=== PATIENT | female | born 1985 | race Caucasian/White ===

== ENCOUNTER 2018-07-17 19:18 | Inpatient (IN) | payer OTHER ==
[2018-07-17 20:21] LABS: ADD UMIC YES; UR ASCORBIC ACID NEGATIVE (NEGATIVE); UR BACTERIA FEW /HPF (NONE SEEN); UR BILIRUBIN (Dip) NEGATIVE (NEGATIVE); UR BLOOD (Dip) 2+ mg/dL (NEGATIVE); UR CLARITY SLIGHTLY CLOUDY (CLEAR); UR COLOR YELLOW (YELLOW); UR GLUCOSE (Dip) 1+ mg/dL (NEGATIVE); UR KETONES (Dip) NEGATIVE (NEGATIVE); UR LEUKOCYTE ESTERASE (Dip) NEGATIVE Leu/ul (NEGATIVE); UR NITRITE (Dip) NEGATIVE (NEGATIVE); UR RBC 3 /HPF (0-5); UR SPECIFIC GRAVITY (Dip) 1.011 (1.003-1.030); UR SQUAMOUS EPITHELIAL CELL FEW /HPF (FEW); UR TOTAL PROTEIN (Dip) NEGATIVE (NEGATIVE); UR UROBILINOGEN (Dip) NEGATIVE (NEGATIVE); UR WBC 1 /HPF (0-5)
[2018-07-17] MEDS ORDERED: AL HYDROX/MG HYDROX/SIMETH 30 ML CUP PO (21:00)
[2018-07-17] MEDS ORDERED: ACETAMINOPHEN 325 MG TAB PO (21:00)
[2018-07-17 21:05] LABS: ADD MAN DIFF? NO; BASOPHILS % 0.3 % (0.0-2.0); EOSINOPHILS # 0.1 10^3/ul (0.0-0.5); EOSINOPHILS % 0.8 % (0.0-7.0); HEMATOCRIT 35.4 % (37.0-47.0); HEMOGLOBIN 11.4 g/dl (12.0-16.0); LYMPHOCYTES # 1.7 10^3/ul (0.8-2.9); LYMPHOCYTES % 18.6 % (15.0-51.0); MEAN CORPUSCULAR HEMOGLOBIN 27.9 pg (29.0-33.0); MEAN CORPUSCULAR HGB CONC 32.2 g/dl (32.0-37.0); MEAN CORPUSCULAR VOLUME 86.6 fl (82.0-101.0); MEAN PLATELET VOLUME 11.8 fl (7.4-10.4); MONOCYTE # 0.7 10^3/ul (0.3-0.9); MONOCYTES % 7.7 % (0.0-11.0); NEUTROPHIL # 6.4 10^3/ul (1.6-7.5); NEUTROPHILS % 72.1 % (39.0-77.0); PLATELET COUNT 216 10^3/UL (140-415); RED BLOOD COUNT 4.09 10^6/ul (4.20-5.40); RED CELL DISTRIBUTION WIDTH 14.9 % (11.5-14.5)
[2018-07-17 21:05] LABS: WHITE BLOOD COUNT 8.9 10^3/ul (4.8-10.8)
[2018-07-17 21:23] LABS: HEMOGLOBIN A1C 5.9 % (0-5.9)
[2018-07-17 21:24] LABS: ALANINE AMINOTRANSFERASE 14 IU/L (13-69); ALBUMIN 3.5 g/dl (3.3-4.9); ALBUMIN/GLOBULIN RATIO 1.16; ALKALINE PHOSPHATASE 76 IU/L (42-121); ANION GAP 6 (5-13); ASPARTATE AMINO TRANSFERASE 12 IU/L (15-46); BILIRUBIN,INDIRECT 0.3 mg/dl (0-1.1); BILIRUBIN,TOTAL 0.3 mg/dl (0.2-1.3); BLOOD UREA NITROGEN 9 mg/dl (7-20); CALCIUM 9.3 mg/dl (8.4-10.2); CARBON DIOXIDE 26 mmol/L (21-31); CHLORIDE 106 mmol/L (97-110); CREATININE 0.52 mg/dl (0.44-1.00); Estimated GFR > 60 mL/min (>60); GLUCOSE 116 mg/dl (70-220); SODIUM 138 mmol/L (135-144); TOTAL PROTEIN 6.5 g/dl (6.1-8.1); URIC ACID 3.5 mg/dl (3.1-7.9)
[2018-07-17] MEDS ORDERED: GLUCAGON 1 MG INJ IM (22:30)
[2018-07-17] MEDS ORDERED: DEXTROSE 50% 50 ML SYRINGE IV ×2 (22:30)
[2018-07-17] MEDS ORDERED: GLUCOSE GEL 15 GRAM TUBE PO ×2 (22:30)
[2018-07-17] MEDS ORDERED: GLUCOSE GEL 15 GRAM TUBE BUCCAL (22:30)
[2018-07-18] MEDS: INSULIN ASPART [NOVOLOG] 3 ML PEN SC ×4 (09:00→21:32)
[2018-07-18] MEDS: PRENATAL VITAMIN PO (09:21)
[2018-07-18] MEDS: FERROUS SULFATE (EC) 325 MG TAB PO (09:21)
[2018-07-18] MEDS: metFORMIN 500 MG TAB PO (20:09)
[2018-07-18 21:11] LABS: COLLECTION PERIOD 24 hrs
[2018-07-18 21:38] LABS: COLLECTION PERIOD 24 hrs; SCRET 0.52 mg/dl (0.44-1.00); VOLUME 2050 ml/24hrs
[2018-07-18 21:39] LABS: 24HR URINE TOTAL PROTEIN 225.5 mg/24hrs (42.0-225.0); CREATININE CLEARANCE 139.8 mls/min (84.0-162.0); CREATININE,URINE RANDOM 51.05 mg/dl (20-320); VOLUME 2050 mls
[2018-07-19] MEDS: INSULIN ASPART [NOVOLOG] 3 ML PEN SC (07:35)
[2018-07-19] MEDS: FERROUS SULFATE (EC) 325 MG TAB PO (09:25)
[2018-07-19] MEDS: PRENATAL VITAMIN PO (09:26)
== END 2018-07-19 16:22 | disposition home or self-care (01) | DRG 833 ==
LOC: OBT 19:18 → L-D 19:18 → OBT 20:26 → L-D 20:26
DX: O24.419 Gestational diabetes mellitus in pregnancy, unspecified control (principal); Z3A.31 31 weeks gestation of pregnancy
CPT/HCPCS: 76815; 76818; 80053; 81001; 82575; 82962; 83036; 84156; 84560; 85025; 86850; 86900; 86901; 93005

== ENCOUNTER 2018-09-02 11:47 | Outpatient (CLI) | payer OTHER | END 2018-09-02 15:22 | disposition home or self-care (01) | LOC: OBT 11:47 → L-D 11:48 → OBT 15:22 | DX: O62.9 Abnormality of forces of labor, unspecified (principal); Z3A.37 37 weeks gestation of pregnancy | CPT/HCPCS: 82962 ==

== ENCOUNTER 2018-09-13 08:08 | Inpatient (IN) | payer OTHER ==
[2018-09-13] MEDS ORDERED: BUTORPHANOL 2 MG INJ IV (08:30)
[2018-09-13] MEDS ORDERED: OXYTOCIN 30 UNITS/LR 500 ML IV (08:30)
[2018-09-13] MEDS ORDERED: IBUPROFEN 600 MG TAB PO (08:30)
[2018-09-13] MEDS ORDERED: LIDOCAINE 1% (MPF) 30 ML INJ INJ (08:30)
[2018-09-13] MEDS ORDERED: CARBOPROST 250 MCG INJ IM (08:30)
[2018-09-13] MEDS ORDERED: AMPICILLIN 2 GM/NS (PMX) 100 ML IV (08:30)
[2018-09-13] MEDS ORDERED: METHYLERGONOVINE 0.2 MG INJ IM (08:30)
[2018-09-13] MEDS: LACTATED RINGER'S 1,000 ML IV ×2 (09:30→19:47)
[2018-09-13 10:10] LABS: ADD MAN DIFF? NO
[2018-09-13 10:25] LABS: BASOPHILS % 0.3 % (0.0-2.0); EOSINOPHILS # 0.1 10^3/ul (0.0-0.5); EOSINOPHILS % 0.9 % (0.0-7.0); HEMATOCRIT 34.4 % (37.0-47.0); HEMOGLOBIN 11.3 g/dl (12.0-16.0); LYMPHOCYTES # 1.6 10^3/ul (0.8-2.9); LYMPHOCYTES % 23.6 % (15.0-51.0); MEAN CORPUSCULAR HEMOGLOBIN 27.4 pg (29.0-33.0); MEAN CORPUSCULAR HGB CONC 32.8 g/dl (32.0-37.0); MEAN CORPUSCULAR VOLUME 83.3 fl (82.0-101.0); MEAN PLATELET VOLUME 12.4 fl (7.4-10.4); MONOCYTE # 0.5 10^3/ul (0.3-0.9); MONOCYTES % 7.1 % (0.0-11.0); NEUTROPHIL # 4.7 10^3/ul (1.6-7.5); NEUTROPHILS % 67.8 % (39.0-77.0); PLATELET COUNT 192 10^3/UL (140-415); RED BLOOD COUNT 4.13 10^6/ul (4.20-5.40); RED CELL DISTRIBUTION WIDTH 15.2 % (11.5-14.5)
[2018-09-13] MEDS: MISOPROSTOL 50 MCG CAPSULE PO (10:32)
[2018-09-13 10:33] LABS: GLUCOSE 111 mg/dl (70-220)
[2018-09-13 11:05] LABS: HEPATITIS B SURFACE ANTIGEN NEGATIVE (NEGATIVE); INR 0.99; PROTIME 13.2 Sec (11.9-14.9)
[2018-09-13] MEDS ORDERED: AMPICILLIN 1 GM/NS (PMX) 50 ML IV (12:30)
[2018-09-13] MEDS: OXYTOCIN 30 UNITS/LR 500 ML IV (14:35)
[2018-09-13 18:37] LABS: ADD UMIC YES; UR ASCORBIC ACID NEGATIVE (NEGATIVE); UR BACTERIA FEW /HPF (NONE SEEN); UR BILIRUBIN (Dip) NEGATIVE (NEGATIVE); UR BLOOD (Dip) 2+ mg/dL (NEGATIVE); UR CLARITY CLEAR (CLEAR); UR COLOR YELLOW (YELLOW); UR GLUCOSE (Dip) NEGATIVE (NEGATIVE); UR KETONES (Dip) TRACE mg/dL (NEGATIVE); UR LEUKOCYTE ESTERASE (Dip) NEGATIVE Leu/ul (NEGATIVE); UR MUCUS FEW /HPF (NONE SEEN); UR NITRITE (Dip) NEGATIVE (NEGATIVE); UR RBC 2 /HPF (0-5); UR SPECIFIC GRAVITY (Dip) 1.015 (1.003-1.030); UR TOTAL PROTEIN (Dip) NEGATIVE (NEGATIVE); UR UROBILINOGEN (Dip) NEGATIVE (NEGATIVE); UR WBC 1 /HPF (0-5)
[2018-09-13 19:15] LABS: ADD MAN DIFF? NO
[2018-09-13 19:17] LABS: WHITE BLOOD COUNT 7.7 10^3/ul (4.8-10.8)
[2018-09-13 19:17] LABS: BASOPHILS % 0.3 % (0.0-2.0); EOSINOPHILS % 0.5 % (0.0-7.0); HEMATOCRIT 34.4 % (37.0-47.0); HEMOGLOBIN 11.1 g/dl (12.0-16.0); LYMPHOCYTES # 1.7 10^3/ul (0.8-2.9); MEAN CORPUSCULAR HEMOGLOBIN 26.9 pg (29.0-33.0); MEAN CORPUSCULAR HGB CONC 32.3 g/dl (32.0-37.0); MEAN CORPUSCULAR VOLUME 83.3 fl (82.0-101.0); MEAN PLATELET VOLUME 12.2 fl (7.4-10.4); MONOCYTE # 0.5 10^3/ul (0.3-0.9); MONOCYTES % 6.7 % (0.0-11.0); NEUTROPHIL # 5.4 10^3/ul (1.6-7.5); NEUTROPHILS % 70.2 % (39.0-77.0); PLATELET COUNT 191 10^3/UL (140-415); RED BLOOD COUNT 4.13 10^6/ul (4.20-5.40); RED CELL DISTRIBUTION WIDTH 15.3 % (11.5-14.5)
[2018-09-13] MEDS: MINERAL OIL LIGHT 10 ML VIAL TOP (19:30)
[2018-09-13 19:35] LABS: ALANINE AMINOTRANSFERASE 18 IU/L (13-69); ALBUMIN 3.3 g/dl (3.3-4.9); ALKALINE PHOSPHATASE 105 IU/L (42-121); ANION GAP 10 (5-13); ASPARTATE AMINO TRANSFERASE 17 IU/L (15-46); BILIRUBIN,INDIRECT 0.3 mg/dl (0-1.1); BILIRUBIN,TOTAL 0.3 mg/dl (0.2-1.3); BLOOD UREA NITROGEN 9 mg/dl (7-20); CARBON DIOXIDE 21 mmol/L (21-31); CHLORIDE 106 mmol/L (97-110); CREATININE 0.52 mg/dl (0.44-1.00); Estimated GFR > 60 mL/min (>60); GLUCOSE 83 mg/dl (70-220); POTASSIUM 4.2 mmol/L (3.5-5.1); SODIUM 137 mmol/L (135-144); TOTAL PROTEIN 6.6 g/dl (6.1-8.1); URIC ACID 4.9 mg/dl (3.1-7.9)
[2018-09-13] MEDS ORDERED: LACTATED RINGER'S 1,000 ML IV (19:56)
[2018-09-13] MEDS ORDERED: MAGNESIUM SULFATE 4 GM/100 ML 100 ML IV (20:00)
[2018-09-13] MEDS ORDERED: FENTAnyl 2MCG/ML-ROPIV 0.2% 100 ML (20:29)
[2018-09-13] MEDS ORDERED: MAGNESIUM SULFATE 20 GM/500 ML 500 ML IV (20:30)
[2018-09-13] MEDS ORDERED: NALOXONE (0.4 MG/ML) INJ IV (21:00)
[2018-09-13 22:33] LABS: RAPID PLASMA REAGIN NONREACTIVE (NR)
[2018-09-13] MEDS: FENTAnyl 2MCG/ML-ROPIV 0.2% 100 ML BAG EPI (22:48)
[2018-09-13] MEDS: DEXTROSE 5%-LR 1,000 ML IV (23:35)
[2018-09-14] MEDS: MISOPROSTOL 200 MCG TAB PR (01:19)
[2018-09-14] MEDS: OXYTOCIN 30 UNITS/LR 500 ML IV ×3 (01:20→09:06)
[2018-09-14] MEDS: ONDANSETRON 4 MG INJ IV (01:42)
[2018-09-14] MEDS: LACTATED RINGER'S 1,000 ML IV* (02:39)
[2018-09-14] MEDS ORDERED: MISOPROSTOL 200 MCG TAB PR (03:00)
[2018-09-14] MEDS ORDERED: DIBUCAINE 1% 30 GM OINT TOP (03:00)
[2018-09-14] MEDS ORDERED: CARBOPROST 250 MCG INJ IM (03:00)
[2018-09-14] MEDS ORDERED: ACETAMINOPHEN 325 MG TAB PO (03:00)
[2018-09-14] MEDS: IBUPROFEN 600 MG TAB PO ×4 (05:36→23:30)
[2018-09-14] MEDS: BENZOCAINE 20% 56 ML SPRAY TOP (09:03)
[2018-09-14] MEDS: SENNA/DOCUSATE NA (8.6MG/50MG) TAB PO ×2 (09:04→21:04)
[2018-09-14] MEDS: WITCH HAZEL/GLYCERIN PAD PR (09:04)
[2018-09-14] MEDS: HYDROCODONE/APAP (5/325) TAB PO (09:11)
[2018-09-14] MEDS ORDERED: ACCU-CHEK XX (17:35)
[2018-09-15] MEDS: LACTATED RINGER'S 1,000 ML IV* (02:39)
[2018-09-15] MEDS: IBUPROFEN 600 MG TAB PO ×4 (05:44→23:39)
[2018-09-15 08:35] LABS: ADD MAN DIFF? NO
[2018-09-15] MEDS: SENNA/DOCUSATE NA (8.6MG/50MG) TAB PO ×2 (08:38→20:08)
[2018-09-15 08:45] LABS: BASOPHILS % 0.3 % (0.0-2.0); EOSINOPHILS # 0.1 10^3/ul (0.0-0.5); EOSINOPHILS % 1.3 % (0.0-7.0); HEMATOCRIT 35.1 % (37.0-47.0); HEMOGLOBIN 10.9 g/dl (12.0-16.0); LYMPHOCYTES # 2.5 10^3/ul (0.8-2.9); LYMPHOCYTES % 28.2 % (15.0-51.0); MEAN CORPUSCULAR HEMOGLOBIN 26.7 pg (29.0-33.0); MEAN CORPUSCULAR HGB CONC 31.1 g/dl (32.0-37.0); MEAN PLATELET VOLUME 12.4 fl (7.4-10.4); MONOCYTE # 0.5 10^3/ul (0.3-0.9); MONOCYTES % 5.9 % (0.0-11.0); NEUTROPHIL # 5.7 10^3/ul (1.6-7.5); NEUTROPHILS % 63.9 % (39.0-77.0); PLATELET COUNT 188 10^3/UL (140-415); RED BLOOD COUNT 4.08 10^6/ul (4.20-5.40); RED CELL DISTRIBUTION WIDTH 15.8 % (11.5-14.5)
[2018-09-16] MEDS: LACTATED RINGER'S 1,000 ML IV* ×3 (02:34→05:21)
[2018-09-16] MEDS: IBUPROFEN 600 MG TAB PO ×2 (05:35→11:33)
[2018-09-16] MEDS: DIPHTH/TET/ACEL PERTUSS (ADULT) 0.5 ML VIAL IM* (09:00)
[2018-09-16] MEDS: SENNA/DOCUSATE NA (8.6MG/50MG) TAB PO (09:26)
== END 2018-09-16 18:10 | disposition home or self-care (01) | DRG 807 ==
LOC: PP1 09-14 03:42 → L-D 08:08
PROVIDERS: Obstetrics & Gynecology
PROC: 10E0XZZ Delivery of Products of Conception, External Approach (ICD-10-PCS; principal; 2018-09-14)
DX: O24.420 Gestational diabetes mellitus in childbirth, diet controlled (principal); O69.81X0 Labor and delivery complicated by cord around neck, without compression, not applicable or unspecified; Z37.0 Single live birth; Z3A.39 39 weeks gestation of pregnancy
CPT/HCPCS: 62322; 76815; 80053; 81001; 82947; 82962; 84560; 85025; 85384; 85610; 85730; 86592; 86850; 86900; 86901; 87340